=== PATIENT | female | born 2000 | race Caucasian/White ===

== ENCOUNTER 2018-12-12 12:58 | Outpatient (CLI) | payer OTHER, MEDICAID, SELFPAY ==
[2018-12-12 13:47] LABS: Appearance Urine UA CLEAR; Bilirubin Urine UA NEGATIVE (NEGATIVE); Color Urine UA YELLOW; Glucose Urine UA NEGATIVE (Negative); Ketones Urine UA NEGATIVE (NEGATIVE); Leukocyte Esterase Urine UA NEGATIVE (NEGATIVE); Nitrite Urine UA NEGATIVE (Negative); Occult Blood Urine UA 3+ (Negative); Protein Urine UA NEGATIVE (Negative); Specific Gravity Urine UA 1.015 (1.000-1.035); Urobilinogen Urine UA 0.2 E.U./dL (0.2); pH Urine UA 7.5 (4.5-8.0)
[2018-12-12 13:59] LABS: Bacteria Urine Moderate (10-30); RBC Urine 5-10/HPF (0-5/HPF); Squamous Epithelial Cell Urine 0-1 /HPF (0-5/HPF); WBC Urine 0-1/HPF (0-5/HPF)
[2018-12-12 14:00] LABS: Culture Indicated Urine Specimen Cultured
== END 2018-12-12 15:03 | disposition home or self-care (01) ==
LOC: LABOR 14:21 → OB 12-13 12:01
PROVIDERS: Visit Provider Family Medicine
DX: O47.03 False labor before 37 completed weeks of gestation, third trimester (principal); R10.2 Pelvic and perineal pain; Z3A.36 36 weeks gestation of pregnancy
CPT/HCPCS: 59025; 59050; 81001; 87086; G0378; G0379

== ENCOUNTER 2018-12-13 08:37 | Outpatient (CLI) | payer OTHER, MEDICAID, SELFPAY ==
[2018-12-13 09:42] LABS: Bacteria Urine None Seen; WBC Urine None Seen (0-5/HPF)
[2018-12-13 09:43] LABS: Appearance Urine UA CLEAR; Bilirubin Urine UA NEGATIVE (NEGATIVE); Color Urine UA YELLOW; Glucose Urine UA NEGATIVE (Negative); Ketones Urine UA NEGATIVE (NEGATIVE); Leukocyte Esterase Urine UA NEGATIVE (NEGATIVE); Nitrite Urine UA NEGATIVE (Negative); Occult Blood Urine UA 2+ (Negative); Protein Urine UA NEGATIVE (Negative); Urobilinogen Urine UA 0.2 E.U./dL (0.2)
[2018-12-13 10:04] LABS: RBC Urine 1-5/HPF (0-5/HPF)
[2018-12-13 10:06] LABS: Culture Indicated Urine Cult Not Indicated
== END 2018-12-13 10:45 | disposition home or self-care (01) ==
LOC: LABOR 08:50 → OB 12:02
DX: O47.03 False labor before 37 completed weeks of gestation, third trimester (principal); R35.0 Frequency of micturition; N23 Unspecified renal colic; M54.9 Dorsalgia, unspecified; Z3A.36 36 weeks gestation of pregnancy
CPT/HCPCS: 59025; 59050; 81001; G0378; G0379

== ENCOUNTER 2019-01-05 00:39 | Observation (INO) | payer OTHER, MEDICAID, SELFPAY | END 2019-01-05 03:39 | disposition home or self-care (01) | LOC: LABOR 00:42 | PROVIDERS: Admitting Provider Obstetrics & Gynecology; Visit Provider Obstetrics & Gynecology | DX: Z34.90 Encounter for supervision of normal pregnancy, unspecified, unspecified trimester (principal) | CPT/HCPCS: 59025; G0378; G0379 ==

== ENCOUNTER 2019-01-05 08:31 | Inpatient (IN) | payer OTHER, MEDICAID, SELFPAY ==
[2019-01-05 09:36] LABS: Add Manual Diff / Slide Review NO; Basophils Absolute Auto 0 /uL (0-100); Basophils Percent Auto 0.4 % (0-2); Eosinophils Absolute Auto 0 /uL (0-450); Hemoglobin 11.9 g/dL (12.0-16.0); Lymphocytes Absolute Auto 1200 /uL (1100-4500); Lymphocytes Percent Auto 10.4 % (25-40); Mean Corpuscular Hemoglobin 28.4 PG (26-34); Mean Corpuscular Volume 86.2 fL (80-100); Monocytes Absolute Auto 500 /uL (0-900); Monocytes Percent Auto 4.2 % (3-14); Neutrophils Absolute Auto 10000 /uL (1500-7000); Platelet Count 183 X10^3/uL (150-400); Red Blood Cell Count 4.18 X10^6/uL (4.0-5.2); Red Cell Distribution Width 14.2 % (11.6-14.8); White Blood Cell Count 11.8 X10^3/uL (4.5-11.0)
--- NOTE | 2019-01-05 16:54 | PM.OBHP.1 ---
OB HPI Date/Time Date of admission: 01/05/19 Date Patient Seen: 01/05/19 Time Patient Seen: 12:45 History of Present Condition Chief complaint: Observation : 1 Para: 0 Estimated Date of Delivery: 01/05/19 Estimated Gestational Age (weeks): 40 Narrative: Stefania Hartley is a 18 year old female 1 para 0 at 40 weeks gestation in active labor History of Present care: good care, initiated at week # (11, transferred from midwifery care at 36 weeks), number of visits (12) and pounds weight gain (35) Dating criteria: LMP confirmed by 2nd trimester US Ultrasounds: normal mid trimester US Obstetrical complications: none Medical complications: none Preadmission Labs Blood type: A (+) positive -: Antibody screen: negative, GBS status: negative, HBsAG: negative, HIV: negative and RPR/VDLR: negative -: Chlamydia screen: not detected and Gonorrhea screen: not detected -: Rubella: immune HCT: 30.3 1 hr GTT: 68 Evaluation Evaluation Baseline heart rate: 130 Variability: Moderate (11-25) monitor accelerations: Present monitor decelerations: Absent Contraction Frequency (minutes): 3 Uterine Contraction Intensity: Strong/Firm Category of Tracing: I Cervical dilation (cm): 7 Cervical effacement (%): 100 station: +1 Laboratory results: Laboratory Tests 01/05/19 01/05/19 09:29 09:29 WBC 11.8 H RBC 4.18 Hgb 11.9 L Hct 36.0 MCV 86.2 MCH 28.4 MCHC 33.0 RDW 14.2 Plt Count 183 Neut % (Auto) 85.0 H Lymph % (Auto) 10.4 L [place] % (Auto) 4.2 Eos % (Auto) 0.0 L Baso % (Auto) 0.4 Neut # (Auto) 16112 H Lymph # (Auto) 1200 [place] # (Auto) 500 Eos # (Auto) 0 Baso # (Auto) 0 Blood Type A Positive Antibody Screen Negative [facility] Medical History (Updated 01/05/19 @ 17:01 by Linda Rincon MD) Cataract (Acute) Glaucoma (Acute) Exam Vital Signs (past 8 hours): Generally: Patient fairly comfortable with epidural Fundal height: 39 cm Estimated weight: 7 lb Extremities: Negative Homans, trace edema Objective Labs Result Diagrams: 01/05/19 09:29 Labs: Laboratory Results - last 24 hr 01/05/19 01/05/19 09:29 09:29 WBC 11.8 H RBC 4.18 Hgb 11.9 L Hct 36.0 MCV 86.2 MCH 28.4 MCHC 33.0 RDW 14.2 Plt Count 183 Neut % (Auto) 85.0 H Lymph % (Auto) 10.4 L [place] % (Auto) 4.2 Eos % (Auto) 0.0 L Baso % (Auto) 0.4 Neut # (Auto) 36078 H Lymph # (Auto) 1200 [place] # (Auto) 500 Eos # (Auto) 0 Baso # (Auto) 0 Blood Type A Positive Antibody Screen Negative Assessment and Plan Assessment and Plan Assessment and Plan narrative: Assessment: 18-year-old 1 para 0 at 40 weeks gestation in active labor Comfortable with epidural Plan: Expected management to spontaneous vaginal delivery Time Spent with Patient Total time spent with greater than 50% in coordination of care (as documented) at patient's floor/unit and/or counseling patient:: 15-24 minutes
--- NOTE | 2019-01-05 17:02 | P.HPOB_ITS ---
OB HPI Date/Time Date of admission: 01/05/19 Date Patient Seen: 01/05/19 Time Patient Seen: 12:45 History of Present Condition Chief complaint: Observation : 1 Para: 0 Estimated Date of Delivery: 01/05/19 Estimated Gestational Age (weeks): 40 Narrative: Stefania Hartley is a 18 year old female 1 para 0 at 40 weeks gestation in active labor History of Present care: good care, initiated at week # (11, transferred from midwifery care at 36 weeks), number of visits (12) and pounds weight gain (35) Dating criteria: LMP confirmed by 2nd trimester US Ultrasounds: normal mid trimester US Obstetrical complications: none Medical complications: none Preadmission Labs Blood type: A (+) positive -: Antibody screen: negative, GBS status: negative, HBsAG: negative, HIV: negative and RPR/VDLR: negative -: Chlamydia screen: not detected and Gonorrhea screen: not detected -: Rubella: immune HCT: 30.3 1 hr GTT: 68 Evaluation Evaluation Baseline heart rate: 130 Variability: Moderate (11-25) monitor accelerations: Present monitor decelerations: Absent Contraction Frequency (minutes): 3 Uterine Contraction Intensity: Strong/Firm Category of Tracing: I Cervical dilation (cm): 7 Cervical effacement (%): 100 station: +1 Laboratory results: Laboratory Tests 01/05/19 01/05/19 09:29 09:29 WBC 11.8 H RBC 4.18 Hgb 11.9 L Hct 36.0 MCV 86.2 MCH 28.4 MCHC 33.0 RDW 14.2 Plt Count 183 Neut % (Auto) 85.0 H Lymph % (Auto) 10.4 L [place] % (Auto) 4.2 Eos % (Auto) 0.0 L Baso % (Auto) 0.4 Neut # (Auto) 02844 H Lymph # (Auto) 1200 [place] # (Auto) 500 Eos # (Auto) 0 Baso # (Auto) 0 Blood Type A Positive Antibody Screen Negative [facility] Medical History (Updated 01/05/19 @ 17:01 by Linda Rincon MD) Cataract (Acute) Glaucoma (Acute) Exam Vital Signs (past 8 hours): Generally: Patient fairly comfortable with epidural Fundal height: 39 cm Estimated weight: 7 lb Extremities: Negative Homans, trace edema Objective Labs Result Diagrams: 01/05/19 09:29 Labs: Laboratory Results - last 24 hr 01/05/19 01/05/19 09:29 09:29 WBC 11.8 H RBC 4.18 Hgb 11.9 L Hct 36.0 MCV 86.2 MCH 28.4 MCHC 33.0 RDW 14.2 Plt Count 183 Neut % (Auto) 85.0 H Lymph % (Auto) 10.4 L [place] % (Auto) 4.2 Eos % (Auto) 0.0 L Baso % (Auto) 0.4 Neut # (Auto) 19546 H Lymph # (Auto) 1200 [place] # (Auto) 500 Eos # (Auto) 0 Baso # (Auto) 0 Blood Type A Positive Antibody Screen Negative Assessment and Plan Assessment and Plan Assessment and Plan narrative: Assessment: 18-year-old 1 para 0 at 40 weeks gestation in active labor Comfortable with epidural Plan: Expected management to spontaneous vaginal delivery Time Spent with Patient Total time spent with greater than 50% in coordination of care (as documented) at patient's floor/unit and/or counseling patient:: 15-24 minutes
--- NOTE | 2019-01-05 17:04 | P.PCNOB_ITS ---
Delivery date: 01/05/19 Intrapartal events: None Cervical ripening method: none Induction method: none Delivery augmentation: rupture of membranes Delivery monitor: external FHT and external uterine Route of delivery: Episiotomy description: None L&D Laceration Description: Vaginal - 2nd Degree Delivery repair: vicryl and chromic Estimated blood loss (mL): 200 Anesthesia type: Epidural Complications: None Narrative: Patient complete and pushed for 1 hour and 3 minutes. At 4:18 p.m., a live male infant delivered spontaneously over an intact perineum. No nuchal cord. The remainder of the body delivered without difficulty and was placed on mom's abdomen. After the cord stopped pulsing, the cord was double clamped and cut. Cord bloods were obtained. The placenta delivered intact with a 3 vessel cord at 1623. Fundus massaged to firm. 10 units of Pitocin given IM. A second- degree vaginal laceration was repaired in the usual fashion. Hemostasis achieved. Estimated blood loss 200 cc. Apgars 8 at 1 minute and 9 at 5 minutes. . Epidural analgesia. Mom and stable to recovery. Plan for aftercare: To routine care
[2019-01-05 18:35] VITALS: BP 118/74
[2019-01-05 19:11] LABS: Hemoglobin 11.1 g/dL (12.0-16.0)
[2019-01-05] MEDS: ACETAMINOPHEN 325 MG TABLET 650 MG PO (20:58)
[2019-01-06] MEDS: ACETAMINOPHEN 325 MG TABLET 650 MG PO ×3 (02:57→16:09)
--- NOTE | 2019-01-06 09:18 | P.DS_ITS ---
Discharge Providers Date of admission: 01/05/19 08:31 Discharge Date: 01/06/19 Consults: 01/05/19 18:34 Consult to Intelligence Intern Routine Comment: Discharge provider: Linda Rincon MD Summary Date Patient Seen: 01/06/19 Time Patient Seen: 09:16 Procedures: Artificial rupture of membranes Epidural analgesia Spontaneous vaginal delivery Second-degree laceration repair Hospital Course: Patient is a 18-year-old 1 para 1 day # 1 status post spontaneous vaginal delivery. She presented early in the morning on 01/05/2019 in early labor. She was sent home and a few hours later returned in active labor. She received an epidural for pain management. She progressed to complete dilation. Artificial rupture membranes was performed. She had a spontaneous vaginal delivery after 1 hour of pushing. She had a second-degree laceration that was repaired. Her course is unremarkable. Peripartum Data Delivery Method: Natural Vaginal Laceration description: Vaginal - 2nd Degree Episiotomy description: None Procedures: Spontaneous vaginal delivery Second-degree laceration repair Artificial rupture of membrane Epidural analgesia complications: none Status at Discharge Cognitive/behavioral status at discharge: oriented Functional status at discharge: independent ambulation Overall status at discharge: patient is progressing back to baseline Time Spent with Patient Total time spent providing and/or coordinating discharge services: Less than 30 minutes Objective Labs Result Diagrams: 01/05/19 19:03 Labs: Laboratory Results - last 24 hr 01/05/19 01/05/19 01/05/19 09:29 09:29 19:03 WBC 11.8 H RBC 4.18 Hgb 11.9 L 11.1 L Hct 36.0 33.0 L MCV 86.2 MCH 28.4 MCHC 33.0 RDW 14.2 Plt Count 183 Neut % (Auto) 85.0 H Lymph % (Auto) 10.4 L [place] % (Auto) 4.2 Eos % (Auto) 0.0 L Baso % (Auto) 0.4 Neut # (Auto) 72134 H Lymph # (Auto) 1200 [place] # (Auto) 500 Eos # (Auto) 0 Baso # (Auto) 0 Blood Type A Positive Antibody Screen Negative Discharge Plan Discharge Plan Patient Disposition: Home Discharge comment: Call with fever, chills, or bleeding vaginally more than a pad an hour Discharge Med Rec/Prescriptions Prescriptions: No Action No Known Home Medications RF: 0 Follow up/Referrals: Channing Arriaza MD [Physician] - 6 Weeks Provider Discharge Instructions Diet: Regular Activity: No intercourse Skin/Wound/Dressing Care Report to your healthcare provider any signs of infection, such as:: chills, fever, increased pain, unusual drainage and unusual redness Visit Report/Discharge Packet Instructions: DI for Labor and Delivery, Vaginal Discharge Data Attending Provider: Linda Rincon Admissac Date/Time: 01/05/19 08:31
--- NOTE | 2019-01-06 09:19 | P.DS_ITS ---
Discharge Providers Date of admission: 01/05/19 08:31 Discharge Date: 01/06/19 Consults: 01/05/19 18:34 Consult to Orthopedic Nurse Practitioner Routine Comment: Discharge provider: Linda Rincon MD Summary Hospital Course: Patient is a 18-year-old 1 para 1 day # 1 status post spontaneous vaginal delivery. She presented early in the morning on 01/05/2019 in early labor. She was sent home and a few hours later returned in active labor. She received an epidural for pain management. She progressed to complete dilation. Artificial rupture membranes was performed. She had a spontaneous vaginal delivery after 1 hour of pushing. She had a second-degree laceration that was repaired. Her course is unremarkable. Time Spent with Patient Total time spent providing and/or coordinating discharge services: Objective Labs Result Diagrams: 01/05/19 19:03 Labs: Laboratory Results - last 24 hr 01/05/19 01/05/19 01/05/19 09:29 09:29 19:03 WBC 11.8 H RBC 4.18 Hgb 11.9 L 11.1 L Hct 36.0 33.0 L MCV 86.2 MCH 28.4 MCHC 33.0 RDW 14.2 Plt Count 183 Neut % (Auto) 85.0 H Lymph % (Auto) 10.4 L [place] % (Auto) 4.2 Eos % (Auto) 0.0 L Baso % (Auto) 0.4 Neut # (Auto) 66173 H Lymph # (Auto) 1200 [place] # (Auto) 500 Eos # (Auto) 0 Baso # (Auto) 0 Blood Type A Positive Antibody Screen Negative Exam Vital Signs (past 8 hours): Generally: Patient is sitting up in bed, no acute distress Fundus: Firm at U -2 Extremities: Trace edema, negative Homans Discharge Plan Discharge Plan Patient Disposition: Home Discharge comment: Call with fever, chills, or bleeding vaginally more than a pad an hour Discharge Med Rec/Prescriptions Prescriptions: No Action No Known Home Medications RF: 0 Follow up/Referrals: Channing Arriaza MD [Physician] - 6 Weeks Provider Discharge Instructions Diet: Regular Activity: No intercourse Skin/Wound/Dressing Care Report to your healthcare provider any signs of infection, such as:: chills, fever, increased pain, unusual drainage and unusual redness Visit Report/Discharge Packet Instructions: DI for Labor and Delivery, Vaginal Discharge Data Attending Provider: Linda Rincon Admit Date/Time: 01/05/19 08:31
[2019-01-06] MEDS: PRENATAL VIT,CALC/IRON/FOLIC 1 TABLET 1 TAB PO (09:27)
[2019-01-06 11:32] VITALS: BP 122/74; PULSE 88; RESP 18; TEMP 37.3
== END 2019-01-06 18:00 | disposition home or self-care (01) | DRG 560 ==
PROVIDERS: Admitting Provider Obstetrics & Gynecology; Visit Provider Obstetrics & Gynecology
DX: O70.1 Second degree perineal laceration during delivery (principal); Z3A.40 40 weeks gestation of pregnancy; Z37.0 Single live birth
CPT/HCPCS: 01967; 36415; 59025; 59050; 59409; 85014; 85018; 85025; 86850; 86900; 86901; G0378; G0379; J3010

== ENCOUNTER → 2020-01-06 09:41 | Outpatient (CLI) | payer OTHER, MEDICAID, SELFPAY ==
--- NOTE | 2020-01-06 09:42 | DI.RAD.S_ITS ---
PROCEDURE: XR KNEE LT 3V INDICATIONS: Fall, direct blow left knee. R/o bony abnormality TECHNIQUE: 3 views of the knee were acquired. COMPARISON: None. FINDINGS: Bones: No fractures or dislocations. No suspicious bony lesions. Patella is intact, normally positioned. Fabella noted. Soft tissues: No joint effusion. No suspicious soft tissue calcifications. IMPRESSION: Normal left knee radiographs. Dictated by: Kal King M.D. on 01/06/2020 at 9:53 Approved by: Kal King M.D. on 01/06/2020 at 9:53
== END ==
PROVIDERS: Referring Provider Physician Assistant; Visit Provider Physician Assistant
DX: S89.92XA Unspecified injury of left lower leg, initial encounter (principal); W19.XXXA Unspecified fall, initial encounter
CPT/HCPCS: 73562